=== PATIENT | female | born 1970 ===

== ENCOUNTER 2018-05-15 16:57 | Emergency (ER) | payer OTHER ==
[2018-05-15] MEDS ORDERED: Albuterol-Ipratrop 3 mg / 0.5 (3 ml) UD ONE (17:12)
[2018-05-15] MEDS ORDERED: Albuterol-Ipratrop 3 mg / 0.5 (3 ml) UD INH STA (17:16)
[2018-05-15 17:28] VITALS: O2SAT 100
[2018-05-15 17:32] LABS: BASO # 0.1 K/uL (0.0-0.2); BASO % 0.7 % (0.0-2.0); EOS # 0.1 K/uL (0.0-0.7); EOS % 0.8 % (0.0-4.0); HEMOGLOBIN 13.9 g/dL (12.0-16.0); LYMPH # 3.6 K/uL (1.0-4.3); LYMPH % 34.9 % (20.0-40.0); MEAN CORPUSCULAR HEMOGLOBIN 30.3 pg (27.0-31.0); MEAN CORPUSCULAR HGB CONC 33.7 g/dL (33.0-37.0); MEAN PLATELET VOLUME 9.9 fl (7.2-11.7); MONO % 9.3 % (0.0-10.0); NEUT # 5.7 K/uL (1.8-7.0); NEUT % 54.3 % (50.0-75.0); RBC 4.57 Mil/uL (3.80-5.20); RED CELL DISTRIBUTION WIDTH 14.5 % (11.5-14.5); WHITE BLOOD COUNT 10.4 K/uL (4.8-10.8)
[2018-05-15 17:36] LABS: PROTHROMBIN TIME 11.3 Seconds (9.8-13.1)
[2018-05-15 17:39] LABS: PARTIAL THROMBOPLASTIN TIME 28.9 Seconds (25.6-37.1)
[2018-05-15 17:41] LABS: ALB/GLOB RATIO 1.2 (1.0-2.1); ALBUMIN 3.9 g/dL (3.5-5.0); ALT/SGPT 52 U/L (9-52); AST/SGOT 38 U/L (14-36); BLOOD UREA NITROGEN 8 mg/dl (7-17); CALCIUM 9.4 mg/dL (8.4-10.2); GFR NON-AFRICAN AMERICAN > 60
[2018-05-15 17:45] LABS: D DIMER < 200 ng/mlDDU (0-230)
[2018-05-15 17:50] LABS: B-TYPE NATRIURETIC PEPTIDE 56.5 pg/ml (0-450)
--- NOTE | 2018-05-15 18:06 | RAD ---
HISTORY: SOB COMPARISON: None available. TECHNIQUE: Chest, one view. FINDINGS: Examination limited by habitus. LUNGS: No focal consolidation. Please note that chest x-ray has limited sensitivity for the detection of pulmonary masses. PLEURA: No significant pleural effusion identified. No definite pneumothorax . CARDIOVASCULAR: The cardiomediastinal silhouette appears within normal limits of size. OSSEOUS STRUCTURES: No acute osseous abnormality identified. VISUALIZED UPPER ABDOMEN: Unremarkable. OTHER FINDINGS: None. IMPRESSION: No focal consolidation, significant pleural effusion, or definite pneumothorax identified.
--- NOTE | 2018-05-15 19:13 | ED PDOC ---
HPI: SOB/CHF/COPD Time Seen by Provider: 05/15/18 17:11 Chief Complaint (Nursing): Shortness Of Breath Chief Complaint (Provider): dyspnea cough History Per: Patient History/Exam Limitations: no limitations Onset/Duration Of Symptoms: Days Current Symptoms Are (Timing): Still Present Current Respiratory Medications: None Additional Complaint(s): 47yo female hx mild intermittent asthma presents c/o cough and SOB ongoing for about a day, thinks precipitated by weather change, now with worsening SOB prompted ED visit after worsened acutely on trip from [facility] on train. Denies syncope, fever, orthopnea or chest pain. Denies hx blood clots. Past Medical History Reviewed: Historical Data, Nursing Documentation, Vital Signs Vital Signs: Last Vital Signs Temp 98.8 F 05/15/18 17:02 Pulse 76 05/15/18 17:27 Resp 26 H 05/15/18 17:27 BP 142/72 05/15/18 17:27 Pulse Ox 100 05/15/18 17:27 - Medical History PMH: Asthma - Family History Family History: States: Unknown Family Hx - Living Arrangements Living Arrangements: With Family - Social History Current smoker - smoking cessation education provided: No - Home Medications Home Medications: Ambulatory Orders Medication Instructions Recorded Albuterol HFA [Ventolin HFA 90 1 - 2 puff IH Q4 PRN #1 inhaler 05/15/18 mcg/actuation (8 g)] Prednisone 50 mg PO DAILY #4 tab 05/15/18 - Allergies Allergies/Adverse Reactions: Allergies Allergy/AdvReac Type Severity Reaction Status Date / Time shellfish derived Allergy SHORTNESS Verified 05/15/18 17:00 OF BREATH Wells Criteria for PE - Wells Criteria for Pulmonary Embolism Clinical Signs and Symptoms of DVT: No P.E is #1 Diagnosis, or Equally Likely: No Heart Rate >100: No Immobilization at least 3 days;Surgery previous 4 weeks: No Previous, objectively diagnosed PE or DVT: No Hemoptysis: No Malignancy w/treatment within 6 months, or palliative: No Total Score: 0 Review of Systems Constitutional: Negative for: Fever ENT: Negative for: Throat Pain Cardiovascular: Negative for: Chest Pain, Palpitations, Orthopnea Respiratory: Positive for: Cough, Shortness of Breath, SOB with Exertion Gastrointestinal: Negative for: Nausea, Abdominal Pain Genitourinary Female: Negative for: Dysuria Musculoskeletal: Negative for: Neck Pain Skin: Negative for: Rash, Lesions Neurological: Positive for: Dizziness. Negative for: Weakness Psych: Positive for: Anxiety Physical Exam - Reviewed Nursing Documentation Reviewed: Yes Vital Signs Reviewed: Yes - Physical Exam Appears: Positive for: Non-toxic (anxious appearing dyspneic but communicative), No Acute Distress Head Exam: Positive for: ATRAUMATIC, NORMAL INSPECTION, NORMOCEPHALIC Skin: Positive for: Normal Color, Warm, DRY Eye Exam: Positive for: EOMI, Normal appearance, PERRL ENT: Positive for: Normal ENT Inspection Neck: Positive for: Normal, Painless ROM Cardiovascular/Chest: Positive for: Regular Rate, Rhythm Respiratory: Positive for: Wheezing (trace wheeze fair air entry), Respiratory D istress Pulses-Radial (L): 3+/4+ Pulses-Radial (R): 3+/4+ Gastrointestinal/Abdominal: Positive for: Soft. Negative for: Tenderness Back: Positive for: Normal Inspection Extremity: Positive for: Normal ROM, Swelling (+1 b/l LE nonpitting edema). Negative for: Tenderness, Calf Tenderness Neurologic/Psych: Positive for: Alert, Oriented. Negative for: Motor/Sensory Deficits - Laboratory Results Result Diagrams: 05/15/18 17:55 05/15/18 17:25 - ECG ECG: Positive for: Interpreted By Me ECG Rhythm: Positive for: Normal QRS, Normal ST Segment, Sinus Rhythm Rate: 80 O2 Sat by Pulse Oximetry: 100 Pulse Ox Interpretation: Normal - Radiology X-Ray: Read By Radiologist X-Ray Interpretation: No Acute Disease Medical Decision Making Medical Decision Making: labs reviewed, BNP normal, DDimer negative, trop neg, Hgb normal range Pt improved significantly w duoneb and solumedrol, wanted to go home. Explained initial concerns and need for followup, further pulm function testing. Rx prednisone and albuterol, carry on her at all times. Gait normal and resp nonlabored on DC. Disposition - Clinical Impression Clinical Impression: Dyspnea - Patient ED Disposition Is Patient to be Admitted: No Counseled Patient/Family Regarding: Studies Performed, Diagnosis, Need For Followup, Rx Given - Disposition Referrals: Ld Sibley MD [Staff Provider] - Disposition: Routine/Home Disposition Time: 18:45 Condition: STABLE Additional Instructions: Followup with PMD in 1-2 days for further testing. Prescriptions: Albuterol HFA [Ventolin HFA 90 mcg/actuation (8 g)] 1 - 2 puff IH Q4 PRN #1 inhaler PRN Reason: Shortness Of Breath Prednisone 50 mg PO DAILY #4 tab Instructions: Shortness of Breath (Dyspnea) (DC) Forms: [employer] (Mongolian)
[2018-05-15 19:24] VITALS: BP 109/67; RESP 17; TEMP 98.6
--- NOTE | 2018-05-16 07:00 | CARD ---
APPROVED REPORT Date of service: 05/15/2018 EKG Measurement Heart [id number] <Conclusion> Normal sinus rhythm Normal Electrocardiogram
[2018-05-16 18:12] VITALS: PULSE 80
== END 2018-05-15 19:24 | disposition home or self-care (01) ==
LOC: H.ER 16:57
DX: R06.00 Dyspnea, unspecified (principal); J44.9 Chronic obstructive pulmonary disease, unspecified; J45.20 Mild intermittent asthma, uncomplicated; Z79.899 Other long term (current) drug therapy